=== PATIENT | female | born 1955 | race Caucasian/White ===

== ENCOUNTER 2017-10-23 15:49 | Emergency (ER) | payer BC ==
[~2017-10-23] VITALS: Ht 162.6 cm; Wt 90.0 kg
[~2017-10-23 15:49] MED LIST: ADV50500 INH; ALBU18HF2 IH; ARMO150T2 PO; ATOR40TA PO; CA C1TAB69 PO; FLUT16SP26 NS; LEVO88TA28 PO; MAGN250T28 PO; PARO-44 PO; POTA2TAB17 PO; PRED10TA PO; TIOT18CA7 IH
[2017-10-23] MEDS ORDERED: dexamethasone sod phosphate 10mg/ml inj IV STA (16:22)
[2017-10-23] MEDS ORDERED: diphenhydrAMINE 50 mg/ml inj IV ONE (16:25)
[2017-10-23] MEDS ORDERED: famotidine 20mg tablet PO ONE (16:25)
[2017-10-23 18:52] VITALS: BP 117/56
[2017-10-23] MEDS ORDERED: LIDOcaine Viscous 15ml cup MM STA (19:10)
[2017-10-23] MEDS ORDERED: DIPH25CA83 PO (19:12)
[2017-10-23] MEDS ORDERED: FAMO40TA73 PO (19:12)
== END 2017-10-23 19:38 | disposition home or self-care (01) ==
LOC: ER 15:52
DX: T78.3XXA Angioneurotic edema, initial encounter (principal); E78.00 Pure hypercholesterolemia, unspecified; J44.9 Chronic obstructive pulmonary disease, unspecified; Z90.710 Acquired absence of both cervix and uterus; Z98.890 Other specified postprocedural states; Z90.89 Acquired absence of other organs; Z79.899 Other long term (current) drug therapy; Y92.9 Unspecified place or not applicable
CPT/HCPCS: 96374; 96375; 99284; J1100; J1200

== ENCOUNTER 2024-09-16 11:38 | Emergency (ER) | payer MEDICARE, OTHER ==
[~2024-09-16] VITALS: Ht 154.9 cm; Wt 62.1 kg
[~2024-09-16 11:38] MED LIST changes: -ADV50500 INH; +DIPH25CA83 PO; +FAMO40TA73 PO; +FLUT1BLS8 INH
[2024-09-16] MEDS: dexamethasone sod phosphate 10mg/ml inj IM STA (13:51)
--- NOTE | 2024-09-16 14:27 | Physician Documentation ---
HPI ~ General Chief Complaint: Medication Request Stated Complaint: NECK PAIN Time Seen by MD: 12:57 Primary Medical Doctor: Nacho Source: patient, family Mode of Arrival: POV Exam Limitations: no limitations History of Present Illness HPI Comments 69-year-old female who is here due to neck pain. She states she has been dealing with this for the past few weeks she recently had an MRI of her cervical spine and was referred to pain management [facility] but states they can not get her in for another two weeks. She states that she can not deal with this level of pain for two weeks she did get a prescription of [place] 5/325 mg which she has been taking twice a day which initially she said helped her pain and she was able to sleep but upon revisiting this she then stated that it was not helping her pain in the she could not sleep and has not slept disease due to her pain. She states it hurts to blow my nose. Patient denies any numbness or tingling in her extremities, chest pain or shortness of breath. Patient also states that she has had five Toradol injections at her primary care provider's office over the past week or two. She also states she took five days of prednisone and initially stated this provided her with relief but then when I went to re-evaluate her after the dexamethasone she stated that the prednisone she had taken for the five days did not help her pain and neither did the dexamethasone. Medication Reconciliation Allergies: Coded Allergies: cephalexin (Unverified Allergy, Unknown, 09/16/24) Scheduled Armodafinil (Nuvigil), 150 MG PO DAILY, (Reported) Atorvastatin Calcium* (Lipitor*), 40 MG PO HS, (Reported) Ca Cmb No.1/Vit D3/B-6/Fa/B12 (Vitamin D3 1,000 Unit Tablet), 1,000 UNIT PO DAILY, (Reported) Diphenhydramine Hcl (Benadryl), 1 CAP PO HS Famotidine (Pepcid), 1 TAB PO DAILY Fluticasone Propionate (Fluticasone Propionate), 1 SPR NS BID, (Reported) Fluticasone/Salmeterol* (Advair 500-50 Diskus*), 1 PUFF INH BID, (Reported) Gabapentin (Gabapentin), 2 CAP PO Q8H Levothyroxine Sodium* (Levoxyl*), 88 MCG PO DAILY, (Reported) Magnesium (Magnesium), 500 MG PO DAILY, (Reported) Paroxetine Hcl (Paroxetine Hcl), 30 MG PO DAILY, (Reported) Potassium Gluconate (Potassium Gluconate), 595 MG PO DAILY, (Reported) Prednisone (Prednisone), 16 MG PO DAILY Scheduled PRN Albuterol Sulfate (Ventolin Hfa), 2 PUFFS IH Q6H PRN for SOB or wheezing, (Reported) Hydrocodone Bit/Acetaminophen (Hydrocodon-Acetaminophn 10-325 tablet), 1 TAB PO TID PRN PRN for pain Tiotropium [place]* (Spiriva*), 18 MCG IH DAILY PRN for allergies, (Reported) Past Medical History Past Medical History: High Cholesterol, Asthma, COPD, Pneumonia, Thyroid (unspecified), Depression Past Surgical History: hysterectomy, orthopedic surgeries, tonsillectomy, other Alcohol Use: None Drug Use: none Review of Systems All Other Systems at this time: Reviewed and Negative Physical Exam Physical Exam Vital Signs: Temperature: 98.0, Source: Temporal, Heart Rate: 85, Respiratory Rate: 16, BP: 143/80, Pulse Oximetry: 98, Weight: 62.100 Oxygen Flow Rate: 0 Physical Exam GENERAL: Alert, mild distress patient is very tearful. Was HEENT: NCAT, EOMI, PERRL, normal oropharynx, moist oral mucosa. NECK: Supple, trachea midline. CARDIAC: Regular rate and rhythm, no murmurs, rubs, or gallops. Equal distal pulses. No lower extremity edema, cap refill less than 2 seconds. RESPIRATORY: Equal breath sounds, clear to auscultation bilaterally, no respiratory distress. MUSCULOSKELETAL: Tenderness over paraspinal muscles of cervical spine mostly on the right side, no midline tenderness. When distracting the patient she moved her cervical spine around normally looking left and right at daughter who is in the room and as well as looking down at the floor and then looking back up it me. Normal gait. NEUROLOGICAL: Awake, alert, and oriented x 3. SKIN: Warm/dry, no pallor, no rash. PSYCH: Alert. The patient appeared very anxious and easily agitated. Speech is clear, but difficult to follow as she initially stated medications helped her and then stated they did not. Good eye contact. Progress Results/Orders Results/Orders Completed Orders - OPPEZZO,LESLEY T PA Dexamethasone Inj (Decadron 10mg/Ml Inj) (09/16/24 13:40) Hydrocodone/Apap 10/325 ([place] 10/325mg (09/16/24 14:50) Gabapentin Capsule (Neurontin Capsule) (09/16/24 14:50) Medications Received in ER Medications (Trade) Dose Ordered Sig/Thai Route PRN Reason Start Time Stop Time Status Last Admin Dose Admin (Decadron 10mg/ ml inj) 10 mg ONCE STAT IM 09/16/24 13:40 09/16/24 13:41 DC 09/16/24 13:51 10 MG ([place] 10/325mg tab) 1 tab ONCE ONCE PO 09/16/24 14:50 09/16/24 14:51 DC 09/16/24 15:02 1 TAB (Neurontin capsule) 300 mg ONCE ONCE PO 09/16/24 14:50 09/16/24 14:51 DC 09/16/24 15:02 300 MG Vital Signs 09/16/24 09/16/24 09/16/24 11:43 15:02 15:09 Temp 98.0 98.0 Pulse 85 75 Resp 16 20 20 B/P (MAP) 143/80 120/68 Pulse Ox 98 98 O2 Flow Rate 0 Medical Decision Making Differential Dx:Considerations: Include: Adverse circumstances, Economic, Psychosocial, Medical services unavail., Medication refill, Medication non- compliance, Other Additional Comment I reviewed the MRI that was recently done just a few days ago at [facility] she had narrowing at C4 through C7 to 7 mm the rest of the levels were at 10-12 mm per radiologist there was no evidence that there was any contact was the spinal cord. There was also foraminal stenosis noted on the imaging and a small bulging disc. No acute findings. Departure Time of Disposition: 14:51 Disposition: 01 HOME / SELF CARE / HOMELESS Impression: Primary Impression: Neck pain Additional Impression: Degenerative cervical disc Condition: Stable Discharge Instructions: Degenerative Disk Disease Additional Instructions: F/u with pain management at [facility] to discuss options for pain management injection as this is not something we can offer here in the ER as it must be done by a specialist trained in this area. You took a 5day course of prednisone which I was under the impression helped your pain and then you got off if on Thursday. This is why we gave you dexamethso ne here in the ER as I was under the impression the prednisone helped your pain when you where on it. Since the dexamethasone we gave you did not help, we gave you norco 10/325mg which is double the dosage you have been taking along with gabapentin. F/u with Dr. Griffith on Thursday next week to discuss possibly increasing the gabapentin for your pain or other options while you wait to see Gricel Duckworth. Referrals: NO PRIMARY CARE PROVIDER (PCP) Prescriptions Gabapentin (Gabapentin) 100 Mg Capsule 2 CAP PO Q8H for 7 Days, #42 CAP 0 Refills Prov: LESLEY BLACKWELL 09/16/24 Hydrocodone Bit/Acetaminophen (Hydrocodon-Acetaminophn 10-325 tablet) 10mg- 325mg Tablet 1 TAB PO TID PRN PRN for pain for 5 Days, #15 TAB dx: neck pain, ddd cervical spine M50.320 Prov: LESLEY BLACKWELL 09/16/24 Education Educated: Patient Educated regarding: diagnosis, treatment, need for follow up Signature Scribe Signature: x Attestation: LESLEY Peters Sep 16, 2024 14:27
[2024-09-16] MEDS ORDERED: GABA-530 PO (14:57)
[2024-09-16] MEDS ORDERED: HYDR-3972 PO (14:57)
[2024-09-16] MEDS: HYDROcodone/acetaminophen 10/325mg tab PO ONE (15:02)
[2024-09-16 15:09] VITALS: BP 120/68; PULSE 75; RESP 20; TEMP 98; O2SAT 98
== END 2024-09-16 15:08 | disposition home or self-care (01) ==
LOC: ER 11:39
DX: M50.30 Other cervical disc degeneration, unspecified cervical region (principal); J44.9 Chronic obstructive pulmonary disease, unspecified; E78.00 Pure hypercholesterolemia, unspecified; F32.A Depression, unspecified; Z88.1 Allergy status to other antibiotic agents; Z90.710 Acquired absence of both cervix and uterus; Z79.899 Other long term (current) drug therapy
CPT/HCPCS: 96372; 99283; J1100